=== PATIENT | female | born 1950 | race Caucasian/White ===

== ENCOUNTER → 2018-08-04 | Outpatient (CLI) | payer MEDICARE, OTHER | LOC: MC.RAD 10:13 | DX: Z12.31 Encounter for screening mammogram for malignant neoplasm of breast (principal); N64.59 Other signs and symptoms in breast ==

== ENCOUNTER → 2018-08-10 | Outpatient (CLI) | payer MEDICARE, OTHER | LOC: MC.RAD 13:31 | DX: N64.89 Other specified disorders of breast (principal); N60.32 Fibrosclerosis of left breast; Z98.890 Other specified postprocedural states ==

== ENCOUNTER → 2018-09-09 | Outpatient (CLI) | payer MEDICARE, OTHER | LOC: COL.PUL 11:02 | DX: J44.9 Chronic obstructive pulmonary disease, unspecified (principal) ==

== ENCOUNTER → 2020-12-16 | Outpatient (CLI) | payer MEDICARE, OTHER | LOC: MC.RAD 10:44 | DX: Z12.31 Encounter for screening mammogram for malignant neoplasm of breast (principal); N64.89 Other specified disorders of breast ==

== ENCOUNTER → 2020-12-23 | Outpatient (CLI) | payer MEDICARE, OTHER | LOC: MC.RAD 08:48 | DX: N64.89 Other specified disorders of breast (principal) ==

== ENCOUNTER → 2021-01-06 | Outpatient (CLI) | payer MEDICARE, OTHER | LOC: MC.RAD 12:44 | DX: N63.20 Unspecified lump in the left breast, unspecified quadrant (principal); R92.0 Mammographic microcalcification found on diagnostic imaging of breast ==

== ENCOUNTER → 2021-01-28 | Outpatient (CLI) | payer MEDICARE, OTHER ==
[~2021-01-28] MED LIST: ASPIRIN E.C. 8181 MG PO; LIPITOR 10MG10 MG PO; NORCO 325 MG-51 TAB PO; OSCAL 500 TAB500 MG PO; VITAMIN D PO
== END ==
LOC: MC.RAD 12:44
DX: C50.919 Malignant neoplasm of unspecified site of unspecified female breast (principal); Z98.82 Breast implant status
CPT/HCPCS: A9520; C1769

== ENCOUNTER 2021-01-29 09:24 | Day surgery (SDC) | payer MEDICARE, OTHER ==
[~2021-01-29] VITALS: Ht 171.4 cm; Wt 70.0 kg
--- NOTE | 2021-01-29 10:20 | NUR ---
Patient arrived from Radiology. Height and weight obtained. Medications and HX reviewed. Procedure verified and consent signed. First and last name + verified. IV started in R forearm with 20G. IVF infusing without difficulty. Physical assessment completed, see physical assessment. Patient changed into a clean gown. Warm blanket provided. Call saravia is at bedside. Non-slip socks are on. Side rails x2.
[2021-01-29] MEDS ORDERED: LIPITOR 10MG10 MG PO (10:26)
[2021-01-29] MEDS ORDERED: ASPIRIN E.C. 8181 MG PO (10:27)
[2021-01-29] MEDS ORDERED: OSCAL 500 TAB500 MG PO (10:27)
[2021-01-29] MEDS ORDERED: VITAMIN D PO (10:28)
--- NOTE | 2021-01-29 11:45 | NUR ---
Patient taken to recieve block.
--- NOTE | 2021-01-29 13:30 | NUR ---
Patient arrived from the PACU, escorted by Mila AQUINO. Patient is alert and oriented. She requested ice water and coffee with cream on the side. Vitals obtained. Report obtained. No drainage from incisions, no swelling noted.
--- NOTE | 2021-01-29 13:45 | NUR ---
Patient is tolerating her water and coffee. Vitals obtained. is present. Call saravia is at bedside.
[2021-01-29] MEDS ORDERED: NORCO 325 MG-51 TAB PO (14:27)
[2021-01-29 14:30] VITALS: BP 107/46; PULSE 67; TEMP 97.6
--- NOTE | 2021-01-29 14:30 | NUR ---
Patient arrived from PACU, escorted by Mila AQUINO. Vitals obtained. Report obtained. Incision is dry and intact, without swelling or drainage. Patient requested ice water and black coffe with cream on the side. Call saravia is at bedside. Side rails x2
[2021-01-29 14:45] VITALS: BP 101/85; BP 105/75; PULSE 58; PULSE 72; TEMP 98.5
--- NOTE | 2021-01-29 14:45 | NUR ---
Vitals obtained. Patient is tolerating her liquids well. is present. Call saravia is within reach.
[2021-01-29 14:51] VITALS: BP 107/46; PULSE 70; TEMP 97.6
--- NOTE | 2021-01-29 15:00 | NUR ---
Vitals obtained. Patient requested a warm muffin to eat. Call saravia is at bedside.
--- NOTE | 2021-01-29 15:15 | NUR ---
Patient is tolerating her muffin well. Denies neasea. Vitals obtained.
--- NOTE | 2021-01-29 15:30 | NUR ---
IV discontinued at this time. Catheter tip intact. Pressure dressing applied. No redness or swelling noted.
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
--- NOTE | 2021-01-29 15:45 | NUR ---
Pain medication administered. Patient is alert and oriented, stating pain 6/10.
--- NOTE | 2021-01-29 16:00 | NUR ---
Patient verbalized understanding the risks involved with leaving, however she said that she was "going anyways." RN escorted the patient via wheelchair to the patient entrence, however the front doors are locked. RN waiting with the patient and her for 10 minutes. However, hospital administration stated that they could wait in the lobby. Patient was transferred into the care of her at this time, who is present to drive. Patient has her discharge information in hand.
== END 2021-01-29 16:10 | disposition home or self-care (01) ==
LOC: SDCO 09:24
DX: C50.412 Malignant neoplasm of upper-outer quadrant of left female breast (principal); F17.210 Nicotine dependence, cigarettes, uncomplicated; Z79.82 Long term (current) use of aspirin; Z79.899 Other long term (current) drug therapy; Z82.3 Family history of stroke
CPT/HCPCS: A4648; J0690; J2250; J2704; J2795; J3010; J7120

== ENCOUNTER → 2021-11-03 | Outpatient (CLI) | payer MEDICARE, OTHER | LOC: COL.RAD 14:55 | DX: Z12.2 Encounter for screening for malignant neoplasm of respiratory organs (principal); F17.210 Nicotine dependence, cigarettes, uncomplicated ==

== ENCOUNTER → 2021-12-19 | Outpatient (CLI) | payer MEDICARE, OTHER | LOC: MC.RAD 08:55 | DX: C50.919 Malignant neoplasm of unspecified site of unspecified female breast (principal); Z98.890 Other specified postprocedural states ==

== ENCOUNTER 2023-02-05 13:38 | Inpatient (IN) | payer MEDICARE, OTHER ==
[~2023-02-05] VITALS: Ht 172.7 cm; Wt 70.4 kg
[2023-02-05 13:59] VITALS: BP 157/61; PULSE 61; TEMP 98.1
--- NOTE | 2023-02-05 14:01 | NUR ---
New pt arrived to unit from [facility] via private vehicle accompanied by her . Pt is a/o x 4, but is very sleepy. Falls asleep during conversation. Pt reporting back pain, denies RENAE. All skin is intact. Facial bruising noted. Valuable items denied. Orientation to room/unit/therapy schedule reviewed w/ the spouse. He had no further questions. Call light in pt's reach. Bed alarm is on.
[2023-02-05 14:06] VITALS: BP_SYST 157
[2023-02-05] MEDS ORDERED: TYLENOL 325MG325 MG PO (14:07)
[2023-02-05] MEDS ORDERED: NORVASC 10MG10 MG PO (14:08)
[2023-02-05] MEDS ORDERED: BACITRACIN OINTMENT TOP (14:09)
[2023-02-05] MEDS ORDERED: FOLIC ACID 11 MG/TA1 PO (14:09)
[2023-02-05] MEDS ORDERED: KEPPRA 500MG500 MG PO (14:10)
[2023-02-05] MEDS ORDERED: ANTIVERT 25MG25 MG PO (14:11)
[2023-02-05] MEDS ORDERED: ZOFRAN ODT4 MG PO (14:12)
[2023-02-05] MEDS ORDERED: MULTI VITAMINS1 TAB PO (14:12)
[2023-02-05] MEDS ORDERED: SENNA-S 50 MG-81 TAB PO ×2 (14:15→14:16)
[2023-02-05] MEDS ORDERED: MIRALAX PA17 GM/Dose PO (14:15)
[2023-02-05] MEDS ORDERED: THIAMINE 1100 MG/TAB PO (14:16)
[2023-02-05] MEDS ORDERED: LIPITOR 10MG10 MG PO (14:16)
[2023-02-05] MEDS ORDERED: VITAMIN D PO (14:17)
--- NOTE | 2023-02-05 14:31 | NUR ---
DC order stating to give Keppra 500mg BID x 4 days. Called to clarify med caitie/ MILES Zhu at [facility] - initial dose was given 02/04 at 1738.
--- NOTE | 2023-02-05 15:41 | NUR ---
Has lack of transportation kept you from medical appts, meetings, work, or from getting things needed for daily living? no How often do you feel lonely or isolated from those around you? rarely Over the past 5 days, how much of the time has pain made it hard for you to sleep? frequently Over the past 5 days, how often have you limited your participation in therapy due to pain? n/a Over the past 5 days, how often have you limited your day-to-day activities because of pain? frequently Have you had 2 or more falls in the past year or any fall with an injury? yes Did you have major surgery during the 100 days prior to admission? no
[2023-02-05 17:13] VITALS: BP 137/49; PULSE 60; TEMP 98
[2023-02-05 17:43] VITALS: BP_SYST 137
--- NOTE | 2023-02-05 17:49 | NUR ---
Pt awake & sitting up in bed to eat dinner. Pt given oxycodone per PRN order for back pain & RENAE approx 30 minutes ago. Pt states the medication is helping. She denies other needs at this time. Call light in reach. Bed alarm on.
[2023-02-05 19:05] VITALS: BP_SYST 137
--- NOTE | 2023-02-05 20:30 | NUR ---
BED ALARM SOUNDING. PT'S ASSISTED PT TO BR. REVIEWED SAFETY PRECAUTIONS WITH PT AND . AGREED THEY WILL USE CALL LIGHT TO HAVE STAFF ASSIST PT TO BR. PT RESTING IN BED. AT BEDSIDE. REVIEWED VISITING HOURS W/ . HE WAS SL UNHAPPY. PT ORIENTED TO PLACE AND PERSON BUT FORGETFUL. PLEASANT AND COOPERATIVE. DENIES PAIN. NO NEEDS AT PRESENT TIME. BED ALRM SET. CALL LIGHT IN REACH.
--- NOTE | 2023-02-06 02:53 | NUR ---
PT WAKES UP AND IS IMPULSIVE. BED ALARM SOUNDING. ASSIST PT TO BR. DISORIENTED TO TIME AND PLACE. BACK TO BED. BED ALARM SET. CALL LIGHT IN REACH.
[2023-02-06 05:13] VITALS: BP 157/73; PULSE 60; TEMP 100.3
--- NOTE | 2023-02-06 05:30 | NUR ---
TEMP 100.3. ENC PT TO COUGH AND DEEP BREATH. ABLE TO DO THIS. GAVE TYLENOL- SEE APR. PT RETURNS TO SLEEP.
[2023-02-06 07:20] VITALS: BP_SYST 157
--- NOTE | 2023-02-06 09:49 | NUR ---
Patient alert to self, situation, location, and day. Did not require any re-orientation. Denies pain at this time. Tolerated medications, food, and fluids well. Bruising continues to orbital area as well as to both arms. Currently working with therapy at this time.
--- NOTE | 2023-02-06 09:55 | NUR ---
Per therapy patient is alert, but her actions are confused. Struggled with putting pants on. Patient has hard time understanding some statements and would ask, "what do you mean?" when asked about managing medications, etc. Patient resting in bed at this time with call light in reach, fall precautions in place.
[2023-02-06 12:12] VITALS: TEMP 97.5
--- NOTE | 2023-02-06 12:25 | NUR ---
Data: Commercial Collections Driver visit attempted during Commercial Collections Driver rounds. Assessment: First attempt Patient was sleeping. Second attempt Patient was indisposed. Plan of Care: Chaplains will continue to remain available as needed/desired while Patient is admitted to this hospital.
--- NOTE | 2023-02-06 14:59 | NUR ---
Patient remains stable, resting in bed at this time with family at bedside. Fall precautions in place. Patient utilizes bathroom frequently, gait is slightly unsteady but stable with SBA. Patient denies pain.
--- NOTE | 2023-02-06 15:19 | NUR ---
Patient called for assistance due to having an accident. Patient noted to have had large loose bowel movement. Patient assisted to bathroom to change underwear and pants, noted to have more while on toilet. Diarrhea is light in appearance, and clear. Patient's states she ate more today than she has the whole week. Patient states she has mild stomach cramps. Currently in bed with call light in reach, family at bedside.
--- NOTE | 2023-02-06 15:57 | NUR ---
Patient had a second episode of incontinent diarrhea. Dr. Bhatia called and orders obtained for stool sample and isolation precautions until results of c.diff test.
[2023-02-06 18:11] VITALS: BP 129/51; PULSE 59; TEMP 100.1
[2023-02-06 18:30] VITALS: BP_SYST 129
--- NOTE | 2023-02-06 18:30 | NUR ---
Patient has not had any further episodes of diarrhea since prior to stool sample orders. During evening vital signs, patient noted to have a temperature of 100.4. PRN Tylenol administered, patient denies pain or chills at this time. Patient in bed with call light in reach and bed alarm on. at bedside.
--- NOTE | 2023-02-06 20:15 | NUR ---
PT RESTING IN BED, VERY FORGETFUL. ORIENTED TO PERSON, PLACE. PT IS VERY IMPULSIVE. PT IS ON ISOLATION FOR POSSIBLE C-DIFF. PT NOT HAVING ANY FURTHER STOOL SINCE LAST SHIFT. PT HAS RECEIVED SENOKOT 2 TAB LAST NIGHT AND MIRALX THIS AM. WAITING FOR NEXT STOOL FOR SPECIMEN. PT IMPULSIVE. DOES NOT USE CALL LIGHT. JUST LEFT. HE IS VERY SUPPORTIVE. CALL IGHT IN REACH. BED ALARM SET.
[2023-02-06 22:00] VITALS: TEMP 98.5
--- NOTE | 2023-02-07 | NUR ---
PT HAS SET OFF THE BED ALARM SEVERAL TIMES. UP TO BR. NO BM TONIGHT.
[2023-02-07 05:50] VITALS: BP 141/69; PULSE 58; TEMP 99.1
[2023-02-07 06:58] VITALS: BP_SYST 141
--- NOTE | 2023-02-07 06:59 | NUR ---
Shift report received from night RN. Pt remains on contact isolation for pending stool cx that still needs to be obtained d/t diarrhea during prior shifts. Pt sleeping supine in bed w/ even & unlabored resps. Call light in reach. Bed alarm on.
--- NOTE | 2023-02-07 07:54 | NUR ---
Pt sitting up in bed to eat breakfast. ST at the bedside for therapy. Pt reporting RENAE & back pain, 09/24. Oxycodone given per PRN order. Other needs denied. Call light in reach. Bed alarm on.
--- NOTE | 2023-02-07 09:24 | NUR ---
Pt off unit w/ PT
--- NOTE | 2023-02-07 10:59 | NUR ---
Pt remains off unit for Group Therapy.
--- NOTE | 2023-02-07 11:50 | NUR ---
SW met with patient to complete intake. Patient provides that she lives in [facility], next of kin is spouse Titus [phone]. Patient is indepednent with ADLs, does not utilize DME, and does not utilize any home health services, PCP is Dr. Mckinney, and pharmacy is [facility], patient provides that spouse is currently DPOA/HC. Patient provides she plans to return to her home upon DC. SW will continue to follow. DC plan: Home
--- NOTE | 2023-02-07 12:07 | NUR ---
Pt sleeping supine in bed after returning from Group Therapy. Resps are even & unlabored & pt arouses easily from sleep. No BM throughout shift so far, C.Diff specimen is still pending collection. Pt denies any needs at this time. at the bedside. Pt has her call light in reach. Bed alarm on.
[2023-02-07 13:51] VITALS: TEMP 99.1
--- NOTE | 2023-02-07 13:51 | NUR ---
Pt sleeping in left side lying position in bed. She remains afebrile throughout this shift so far. Pt aroused easily from sleep. Denies any needs at this time. Call light in her reach. Bed alarm on. at the bedside.
--- NOTE | 2023-02-07 14:16 | NUR ---
Pt sitting up in bed eating lunch. Pt reporting back pain at 7/10. Oxycodone given per PRN order. Pt denies other needs. Call light in reach. Bed alarm on. at the bedside.
[2023-02-07 17:04] VITALS: BP 128/63; PULSE 70; TEMP 98.3
[2023-02-07 18:30] VITALS: BP_SYST 128
--- NOTE | 2023-02-07 21:00 | NUR ---
PT RESTING IN BED. VERY FORGETFUL. SEE COMPLETED SHIT REPORT. ISOLATION UNTIL STOOL SPECIN IS OBTAINED AND RESULTED. PT HAD DIARRHEA THE OTHER DAY FROM [facility]. NO FURTHER DIARRHEA SINCE THAT DAY. PT C/O RENAE. VSS. SEE MAR FOR OXYCODONE GIVEN. CALL LIGHT IN REACH. BED ALARM SET.
--- NOTE | 2023-02-07 21:25 | NUR ---
REPEATED OXYCODONE FOR PERSISTENT RENAE. INITIATED NEURO CHECK- WNL.
--- NOTE | 2023-02-08 05:06 | NUR ---
PT C/O PERSISTENT RENAE. VSS. SEE MAR FOR OXYCODONE AND TYLENOL. NO CHANGE IN NEURO STATUS. ASSISTED TO BR WITH WALKER. VOIDED. RETURNED TO BED. CALL LIGHT IN REACH. BED ALARM SET.
[2023-02-08 05:09] VITALS: BP 125/76; PULSE 54; TEMP 98.7
[2023-02-08 07:18] VITALS: BP_SYST 125
--- NOTE | 2023-02-08 07:18 | NUR ---
Shift report received from night RN. No events reported overnight. Pt awake in bed & asking for Oxycodone & Tylenol for back pain & RENAE. Will check EMAR. Call light in reach. Bed alarm on.
--- NOTE | 2023-02-08 07:19 | NUR ---
Oxycodone & Tylenol given approx 2 hrs ago. Too early for either dose.
--- NOTE | 2023-02-08 09:35 | NUR ---
Pt's [id number] at [facility] nurse desk wanting to speak w/ nurse. Pt's present. [id number] stated that she is a physician & wanted to ask questions about pt's pain medications, routine/scheduled medications, & temperatures over the last 24-48 hrs. Medications & temperatures were discussed after she was able to provide 4-digit PIN number. [id number] informed this RN that pt reporting "that it feels like a steel bar going through my head". Discussed w/ [id number] that PRN medications were last given 4 hrs ago & she is within timeframe to receive additional doses if requested by the pt. She had no further questions after being provided w/ the information she was requesting. Jrlevgxt-le-slf thanked this RN & exited the unit. Upon room entry, pt sitting up in the recliner. Pt supervised as she stood from recliner & got into bed w/o assistance or assitive devices. Oxycodone given per PRN order. Other needs denied. Call light in her reach. Bed alarm on.
--- NOTE | 2023-02-08 11:40 | NUR ---
Pt sitting up in bed needing to go to the bathroom. Pt reports feeling dizzy & reports continued RENAE. Supervision provided as pt stood from bed to FWW & ambulated to the bathroom. Pt back to bed after toileting. Tylenol & Antivert given per PRN orders. Pt denies other needs at this time. Call light in her reach. Bed alarm on.
--- NOTE | 2023-02-08 13:09 | NUR ---
Pt sleeping in side lying position in bed. Resps even & unlabored. Call light in reach. Bed alarm on. at the bedside.
--- NOTE | 2023-02-08 16:18 | NUR ---
RN in room to assist pt to the bathroom. Supervision provided as pt ambulated w/ FWW. Pt reports that she has no headache at this time & that Antivert given earlier has taken away the feeling of dizziness. Discussed w/ pt she can have Antivert Q8H. Pt back to bed after toileting. Other needs denied. Call light in reach. Bed alarm on.
[2023-02-08 16:21] VITALS: BP 139/73; PULSE 62; TEMP 97.3
[2023-02-08 19:32] VITALS: BP_SYST 139
--- NOTE | 2023-02-08 19:34 | NUR ---
Received change of shift report from day shift nurse.
--- NOTE | 2023-02-08 20:51 | NUR ---
Patient refused to wear SCD, stating wearing SCD "is very uncomfortable". Denies any needs or pain at this time. Watching TV. No family at bedside, visiting hours over. Denies needs to void, denies appetite for food at this time.
--- NOTE | 2023-02-09 02:13 | NUR ---
Patient resting with eyes closed, breathing nonlabored and even. Did not wake during nursing rounds. Exit alarm on, call light in reach.
[2023-02-09 05:09] VITALS: BP 144/85; PULSE 60; TEMP 98.1
--- NOTE | 2023-02-09 07:22 | NUR ---
Change of shift report given to day shift nurseLorin. Patient resting in bed, exit alarm on, call light in reach.
[2023-02-09 08:50] VITALS: BP_SYST 144
--- NOTE | 2023-02-09 08:50 | NUR ---
PT SITTING ON SIDE OF BED WITH THERAPY UPON ENTERING. PT DENIES PAIN AT THIS TIME BUT REPORTS DIZZINESS, GIVEN PRN ANTIVERT. PT DENIES NEEDS AT THIS TIME. SPEECH AT BEDSIDE UPON THIS NURSE LEAVING.
--- NOTE | 2023-02-09 12:51 | NUR ---
PT AMBULATED TO BATHROOM STANDY ASSIST WITH WALKER AND GAIT BELT, AT BEDSIDE. PT TRANSFERRED BACK TO BED BY CORRY GTZ. PT DENIES NEEDS AT THIS TIME
--- NOTE | 2023-02-09 14:27 | NUR ---
Admission QIM scores were reviewed by the team. Code of 4 chosen for oral hygiene was determined by team discussion to be the most usual performance before interventions for this patient during the assessment period. Code of 4 chosen for toileting hygiene was determined by team discussion to be the most usual performance for this patient during the discharge assessment period. Code of 88 chosen for toilet transfers was determined by team discussion to be the most usual performance for this patient during the discharge assessment period. Code of 4 chosen for upper body dressing was determined by team discussion to be the most usual performance before interventions for this patient during the assessment period. Code of 4 chosen for lower body dressing was determined by team discussion to be the most usual performance before interventions for this patient during the assessment period. Code of 4 chosen for putting on/taking off footwear was determined by team discussion to be the most usual performance before interventions for this patient during the assessment period. Code of 4 chosen for rolling left to right was determined by team discussion to be the most usual performance before interventions for this patient during the assessment period. Code of 4 chosen for sit to lying was determined by team discussion to be the most usual performance before interventions for this patient during the assessment period. Code of 4 chosen for lying to sitting side of bed was determined by team discussion to be the most usual performance before interventions for this patient during the assessment period. Code of 4 chosen for sit to stand was determined by team discussion to be the most usual performance for this patient during the discharge assessment period. Code of 3 chosen for walking 10 feet was determined by team discussion to be the most usual performance for this patient during the discharge assessment period. Code of 88 chosen for walking 50 feet w/ 2 turns was determined by team discussion to be the most usual performance before interventions for this patient during the discharge assessment period. Code of 88 chosen for walking 150 feet was determined by team discussion to be the most usual performance before interventions for this patient during the assessment period. -Jennifer Dill, [facility].
[2023-02-09 16:29] VITALS: BP 137/67; PULSE 61; TEMP 98.4
--- NOTE | 2023-02-09 17:26 | NUR ---
family service worker was notified by Juana Olea, IPR director, family meeting is scheduled for 02/10/23 at 10:15 AM. SW will be present.
--- NOTE | 2023-02-09 19:00 | NUR ---
shift report received from MILES Padgett
[2023-02-09 19:13] VITALS: BP_SYST 137
--- NOTE | 2023-02-09 19:30 | NUR ---
assisted up to bathroom, c/o some abdominal cramping and had she had a semi soft bowel movement, assisted back to bed, states she had a loose stools a couple of days ago but this is the first one today, will monitor
--- NOTE | 2023-02-09 20:20 | NUR ---
resting in bed, states stomach is feeling better at this time, full assessment completed, see interventions for further info, strength in upper and lower extremities WNL, denies pain at this time
--- NOTE | 2023-02-09 22:05 | NUR ---
called and assisted up to bathroom to void
--- NOTE | 2023-02-10 00:42 | NUR ---
appears to be sleeping, resp quiet and easy
--- NOTE | 2023-02-10 01:32 | NUR ---
report given to MILES Rice
[2023-02-10 05:31] VITALS: BP 149/91; PULSE 54; TEMP 98.4
[2023-02-10 07:33] VITALS: BP_SYST 149
--- NOTE | 2023-02-10 16:12 | NUR ---
PATIENT ASSESSMENT COMPLETE. VSS ALERT AND ORIENTED, BUT FORGETS LIMITATIONS AND IS VERY FORGETFUL. SBA TO THE RESTROOM WITH WALKER. DOES NOT COMPLAIN OF ANY PAIN, DID GIVE 1X DOSE OF MECLIZINE PRN FOR DIZZINESS. THIS MORNING AT 1000. PATIENT RESTING IN BED. X3 BEDRAILS UP, BED ALARM ON.
--- NOTE | 2023-02-10 17:47 | NUR ---
tare worker met with IPR team to discuss patient's progress and potential discharge. The team would like to re-evaluate patient next week. SW met with patient, family members and the IPR team for a family meeting. Patient was understanding about re-evaluation next week but is hopeful for a discharge next week. SW met with patient and her to review the IPR team meeting notes. SW provided a copy. SW discussed Home Health services and any DME needs. Patient and would like to discuss this closer to discharge.
[2023-02-10 17:48] VITALS: BP 121/56; PULSE 65; TEMP 98
[2023-02-10 18:30] VITALS: BP_SYST 121
--- NOTE | 2023-02-10 19:45 | NUR ---
PT RESTING IN BED. VISITING WITH . ORIENTED BUT FORGETFUL- CAN BE IMPULSIVE. EXPLAINING THE CONTROLS FOR THE LIGHTS/TV AND CALL LIGHT. UNABLE TO COMPREHEND AND RETAIN INFO. PT OVERWHELMED WITH INFO. INFORMATION HAS TO BE REPEATED. DENIES H/A AT THIS TIME. RELATES ALITTLE DIZZINESS. CALL LIGHT IN REACH. BED ALARM SET.
[2023-02-11 05:10] VITALS: BP 135/89; PULSE 60; TEMP 98.2
[2023-02-11 07:17] VITALS: BP_SYST 135
--- NOTE | 2023-02-11 07:17 | NUR ---
RECIEVED REPORT FROM NIGHT MILES CUEVA.
--- NOTE | 2023-02-11 15:40 | NUR ---
PT ALERT AND ORIENTED X4. UPON ENTERING ROOM THIS AM PT WANTED HWLP SITTING UP TO EAT BREAKFAST, SHE WAS SLIGHTLY GROGGY C/O HEADACHE. MEDICATED FOR RENAE PER EMAR AND SCHEDULED MEDS GIVEN. SHIFT ASSSESSMENT COMPLETE, SEE DOCUMNENTATION. NO FURTHER NEEDS EXPRESSED AT THIS TIME.CALL LIGHT WITHIN REACH. BED ALARM ENGAGED.
[2023-02-11 18:00] VITALS: BP 125/87; PULSE 61; TEMP 98.3
--- NOTE | 2023-02-11 20:00 | NUR ---
SBA TO BR. VOIDING W/O DIFFICULTY. MANAGING OWN TOILETING HYGIENE. MORE ORIENTED AND LESS FORGETFUL. PT HAS BEEN USING CALL LIGHT WHEN NEEDING ASSIST. SEE MAR FOR PAIN MED GIVEN FOR RENAE AND SPASM ACROSS LOW BACK. BACK TO BED. CALL LIGHT IN REACH. BED ALARM SET.
[2023-02-11 21:00] VITALS: BP_SYST 125
[2023-02-12 05:23] VITALS: BP 108/69; PULSE 58; TEMP 98
[2023-02-12 07:00] VITALS: BP_SYST 108
--- NOTE | 2023-02-12 16:17 | NUR ---
RECIEVED REPORT FROM LIGHT NURSE RNANAY.
--- NOTE | 2023-02-12 16:29 | NUR ---
PT ALERT AND ORIENTED X4. VSS, SHIFT ASSESSMENT COMPLETE. MEDICATED PER EMAR. PT STATES HER HEAD DOENST HURT QUITE BAD YESTERDAY. PAIN RATED 3/10 IN LOWER BACK THAT SHE SAYS IS NEW. IS TOLERATING THERAPIES WELL AND EATING WELL. DENIES FURTHER NEEDS AT THIS TIME. CALL LIGHT WITHIN REACH, BED ALARM ON.
[2023-02-12 18:07] VITALS: BP 98/62; PULSE 65; TEMP 97.9
[2023-02-12 19:00] VITALS: BP_SYST 98
--- NOTE | 2023-02-12 20:00 | NUR ---
PT RESTING IN BED WITH AT BEDSIDE. A&O BUT FORGETFUL. STATES SHE HAS HAD A MILD HEADACHE TODAY & REQUESTING PRN TYLENOL. REFUSING SCDS, EDUCATION PROVIDED. CALL LIGHT IN REACH & FALL PRECAUTIONS IN PLACE. PT DENYING FURTHER NEEDS.
--- NOTE | 2023-02-13 05:16 | NUR ---
PT RESTING IN BED WITH EVEN & UNLABORED RESP. & CALL LIGHT IN REACH
[2023-02-13 05:23] VITALS: BP 114/74; PULSE 55; TEMP 97.9
[2023-02-13 07:00] VITALS: BP_SYST 114
[2023-02-13 17:09] VITALS: BP 108/70; PULSE 62; TEMP 98.2
--- NOTE | 2023-02-13 17:28 | NUR ---
PT ALERT AND ORIENTED X4, VSS. SHIFT ASSESSMENT COMPLETE, PAIN 0/10, MEDICATED PER EMAR. STATES SHE SLEPT WELL OVERNIGHT, NO RENAE THIS AM. STANDBY ASSIST WITH GAIT BELT. WANTS TO GO HOME SOON. HAD A SHOWER TODAY WITH PCT, AND ATTENDED GROUP THERAPY. NO FURTHER NEEDS EXPRESSED AT THIS TIME, CALL LIGHT WITHIN REACH, BED ALARM ON.
--- NOTE | 2023-02-13 21:51 | NUR ---
Patient assessed at this time, see shift assessment, denies pain or discomfort, SBA to bathroom, voiding without any difficulty, all needs met, call light and personal items within reach, will continue to monitor.
[2023-02-14 05:37] VITALS: BP 104/72; PULSE 64; TEMP 98.2
--- NOTE | 2023-02-14 05:55 | NUR ---
Patient complained of headache, tylenol given.
[2023-02-14 08:26] VITALS: BP_SYST 104
[2023-02-14 09:16] VITALS: BP 122/65
--- NOTE | 2023-02-14 11:51 | NUR ---
PT ALERT AND ORIENTED X4. AMBULATING WITH STANDBY ASSIST AND GAIT BELT. VSS. C/O MILD HEADACHES THAT ARE NOT NEW. MEDICATED PER EMAR. SHIFT ASSESSMENT COMPLETE, SEE DOCUMENTATION. DENIES NEED FOR ANYTHNING FURTHER. CALL LIGHT WITHIN REACH, BED ALARM SET.
[2023-02-14 16:59] VITALS: BP 102/66; PULSE 60; TEMP 98
[2023-02-14 19:23] VITALS: BP_SYST 102
--- NOTE | 2023-02-14 22:32 | NUR ---
PT LAYING IN BED, ALERT AND ORIENTEDX4. NO COMPLAINTS OF PAIN AT THIS TIME. ASSESSED, GAVE MEDS. CALL LIGHT WITHIN REACH
[2023-02-15 05:53] VITALS: BP 126/76; PULSE 60; TEMP 97.5
[2023-02-15 07:00] VITALS: BP_SYST 126
--- NOTE | 2023-02-15 11:53 | NUR ---
PT ALERT AND ORIENTED X4, SLIGHLY DELAYED RESPONSES. C/O RENAE THIS AM. PT WAS MEDICATED FOR RENAE PAIN. BP WAS 109/ 73 ON LEFT UPPER ARM. SHIFT ASSESMENT COMPLETE, VSS. WILL REASSESS PT RENAE PAIN AFTER GROUP THERAPY. SHOWERED THIS MORNING WITH OT AND WAS REPORTED TO BE REACHING ALL THE WAY DOWN AND SPRINING BACK UP SEVERAL TIMES IN A ROW.THIS MAY HAVE CAUSED HER REANE. NO OTHER NEW COMPLIANTS AT THIS TIME. MEDICATED PER EMAR, BED ALARM SET, CALL LIGHT WITHIN REACH.
[2023-02-15 18:07] VITALS: BP 107/67; PULSE 69; TEMP 97.6
[2023-02-15 19:00] VITALS: BP_SYST 107
--- NOTE | 2023-02-15 19:07 | NUR ---
report received from randy huggins. pt resting in bed doing a crossword puzzle. pt denies pain. pt was just assisted to the bathroom with steady gait. bed alarm on. call light in reach. all needs met at this time.
--- NOTE | 2023-02-15 20:30 | NUR ---
shift assessment complete, see documentation. pt denies pain. pt does have c/o constipation and reports feeling bloated. pt abdomen flat with slight distension but still soft. audible bowel sounds heard in all quadrants. scheduled senokot administered per orders. pt resting in bed. bed alarm on. call light in reach. all needs met at this time.
--- NOTE | 2023-02-16 00:58 | NUR ---
pt has been up to bathroom multiple times and remains to have steady gait. pt not pleased about her bed alarm but states she understands why it needs to be on. pt back in bed. bed alarm on. call light in reach. all needs met at this time.
--- NOTE | 2023-02-16 01:14 | NUR ---
pt requesting prn for constipation. prn miralax administered per orders. pt still has slightly distended abdomen. bed alarm on. call light in reach. all needs met at this time.
[2023-02-16 05:45] VITALS: BP 114/70; PULSE 66; TEMP 97.9
[2023-02-16 07:23] VITALS: BP_SYST 114
--- NOTE | 2023-02-16 08:25 | NUR ---
PT LAYING IN BED, ALERT AND ORIENTEDX4. NO COMPLAINTS OF HEADACHES AT THIS TIME. PT DOES COMPLAIN OF SOME ABDOMINAL PAIN DUE TO CONSTIPATION. GAVE MORNING MEDS. CALL LIGHT WTIHIN REACH.
--- NOTE | 2023-02-16 11:55 | NUR ---
Has lack of transportation kept you from medical appts, meetings, work, or from getting things needed for daily living? NO How often do you feel lonely or isolated from those around you? NEVER Over the past 5 days, how much of the time has pain made it hard for you to sleep? OCCASIONALLY Over the past 5 days, how often have you limited your participation in therapy due to pain? RARELY/NOT AT ALL Over the past 5 days, how often have you limited your day-to-day activities because of pain? RARELY/NOT AT ALL
--- NOTE | 2023-02-16 15:20 | NUR ---
artificial marble worker was informed patient will discharge tomorrow and needs HH or outpatient PT/ST services. SW spoke with patient and she began to question the need for any services after this stay. SW expressed the need to continue to work on PT needs and be safe in the home. Pt was agreeable to [facility] [address]. Pt's walked in and inquired about home health services. Pt expressed she felt unsure and confused. SW explained the differences and touched on the issue of transportation as the spouse did not want to transport her. Pt was agreeable to this and used [facility] for her spouse in the past. Spouse provided a number for Shaina Lozoya and SW called her to confirm. SW faxed a HH referral for ST and PT. Shaina Lozoya confirms she has seen the family in the past and will review. Discharge Plan: Home with Home Health tbd?
--- NOTE | 2023-02-16 16:22 | NUR ---
The Interdisciplinary team discussed making the patient Independent in her room duringTeam Huddle. Her current Clemons Fall Score is moderate at 25 & Tinetti score was low at 24. She is currently not using any device for mobility & self care & demonstrates good safety. The team feels she is capable of being Independent in her room at this time as she is aware of her deficits/limitations & cognitively able to problem solve her situations.--Juana Olea, PD
[2023-02-16 18:16] VITALS: BP 108/71; PULSE 73; TEMP 98
[2023-02-16 19:37] VITALS: BP_SYST 108
--- NOTE | 2023-02-16 19:37 | NUR ---
Received change of shift report from day shift nurse. Patient resting in bed, exit alarm on, call light in reach.
--- NOTE | 2023-02-16 19:39 | NUR ---
Recieved change of shift report from day shift nurse. Patient up in room independently. No needs reported.
--- NOTE | 2023-02-16 19:59 | NUR ---
Patient told PCT that she is having loose stools and wanting med for loose stools.
--- NOTE | 2023-02-16 20:30 | NUR ---
Patient clarified that she is having a hard time having a bowel movement. See MAR for stool softener given.
[2023-02-17 05:02] VITALS: BP 141/78; PULSE 63; TEMP 98
--- NOTE | 2023-02-17 07:09 | NUR ---
Change of shift report given to day shift nurseBernadette.
[2023-02-17 07:14] VITALS: BP_SYST 141
--- NOTE | 2023-02-17 07:14 | NUR ---
Shift report received from night RN. Pt sleeping supine in bed w/ even & unlabored resps. No events reported overnight. Call light in reach. Remains on Mod I status in room.
--- NOTE | 2023-02-17 08:34 | NUR ---
Pt up in room packing her belonging for DC to home today. She reports having no pain this mornining. She denies any needs at this time. She is unsure what time her will be here to pick her up. Call light in her reach. She remains on Mod I status in room.
[2023-02-17] MEDS ORDERED: NORVASC 10MG10 MG PO (10:34)
[2023-02-17] MEDS ORDERED: ANTIVERT 25MG25 MG PO (10:36)
[2023-02-17] MEDS ORDERED: VITAMIN D31000 I1 PO (10:37)
[2023-02-17] MEDS ORDERED: OXY IR5 MG PO (10:38)
--- NOTE | 2023-02-17 12:23 | NUR ---
DC Summary reviewed w/ the pt & spouse. They had no further questions. Belongings gathered by the pt & spouse. Valuable items denied. Pt ambulated off unit per her request accompanied by RN.
--- NOTE | 2023-02-17 16:42 | NUR ---
cooler worker attended team meeting regarding pt. She will discharge today with [facility] and no DME needs. Patient completed IM from [employer]. She was provided copy and original in chart. PEGGY Branham faxed updates and orders to [facility]. Discharge Plan: Home today with [facility]
--- NOTE | 2023-02-18 12:32 | NUR ---
Discharge QIM scores were reviewed by the team. Code of 6 chosen for oral hygiene was determined by team discussion to be the most usual performance for this patient during the discharge assessment period. Code of 6 chosen for toileting hygiene was determined by team discussion to be the most usual performance for this patient during the discharge assessment period. Code of 6 chosen for toilet transfers was determined by team discussion to be the most usual performance for this patient during the discharge assessment period. Code of 6 chosen for walking 50 feet w/ 2 turns was determined by team discussion to be the most usual performance before interventions for this patient during the discharge assessment period. Code of 6 chosen for walking 150 feet was determined by team discussion to be the most usual performance for this patient during the discharge assessment period.--Juana Olea, PD
== END 2023-02-17 12:17 | disposition home health service (06) | DRG 950 ==
PROVIDERS: ADMIT Physical Medicine & Rehabilitation Sports Medicine
DX: S06.5X1D Traumatic subdural hemorrhage with loss of consciousness of 30 minutes or less, subsequent encounter (principal); S02.119D Unspecified fracture of occiput, subsequent encounter for fracture with routine healing; G40.909 Epilepsy, unspecified, not intractable, without status epilepticus; I10 Essential (primary) hypertension; E78.5 Hyperlipidemia, unspecified; W18.30XD Fall on same level, unspecified, subsequent encounter; K59.00 Constipation, unspecified; R42 Dizziness and giddiness; S06.6X1D Traumatic subarachnoid hemorrhage with loss of consciousness of 30 minutes or less, subsequent encounter; Z79.899 Other long term (current) drug therapy; Z74.09 Other reduced mobility; R26.89 Other abnormalities of gait and mobility